=== PATIENT | female | born 1995 | race Caucasian/White ===

== ENCOUNTER 2017-02-19 10:01 | Inpatient (IN) ==
[2017-02-19] MEDS ORDERED: LR 500 ML IV ONE (10:38)
[2017-02-19] MEDS ORDERED: KEFZOL 1 GM/D5W 1 GM/50 ML IVPB IV PRN (10:38)
[2017-02-19] MEDS ORDERED: REGLAN PO ONE (10:38)
[2017-02-19] MEDS ORDERED: LR 1,000 ML IV SCH ×2 (10:38→11:00)
[2017-02-19] MEDS ORDERED: PEPCID PO ONE (10:38)
[2017-02-19] MEDS ORDERED: REGLAN IV ONE (11:00)
[2017-02-19] MEDS ORDERED: BICITRA PO ONE (11:00)
[2017-02-19] MEDS ORDERED: PEPCID IV ONE (11:00)
[2017-02-19 11:24] LABS: MANUAL DIFF NEEDED? NO; URINE SOURCE VOIDED
[2017-02-19 11:25] LABS: BASO% 0.2 % (0.0-0.8); EOS# 0.03 X1000 (0.0-0.7); EOS% 0.3 % (0.0-10.0); HEMATOCRIT 34.6 % (37.0-47.0); HEMOGLOBIN 11.4 g/dL (12.0-16.0); IMM GRAN# 0.03 X1000 (0.0-0.04); IMM GRAN% 0.3 % (0.0-0.5); LYMPH# 1.99 X1000 (1.2-3.4); LYMPH% 17.8 % (20.5-51.1); MCH 25.8 PG (27-31); MCHC 32.9 g/dL (33-37); MCV 78.3 FL (81-99); MONO% 5.4 % (1.7-9.3); MPV 9.8 FL (7.4-10.4); PLT 240 X1000 (130-400); RBC 4.42 XMIL (4.2-5.4)
[2017-02-19 11:37] LABS: BILIRUBIN URINE NEGATIVE (NEGATIVE); BLOOD URINE NEGATIVE (NEGATIVE); CLARITY CLEAR (CLEAR); COLOR YELLOW; GLUCOSE URINE NEGATIVE (NEGATIVE); LEUKOCYTES URINE 1+ (NEGATIVE); NITRITE URINE NEGATIVE (NEGATIVE); PROTEIN URINE NEGATIVE (NEGATIVE); SP GRAVITY URINE 1.015; UROBILINOGEN URINE NORMAL
[2017-02-19] MEDS ORDERED: PITOCIN 20 UNITS/LR 20 UNITS/1,000 ML IV.SOLN ONE (14:31)
[2017-02-19] MEDS ORDERED: CYTOTEC PO PRN ×2 (14:48→16:38)
[2017-02-19] MEDS ORDERED: PERCOCET-5 PO PRN ×2 (14:48→16:38)
[2017-02-19] MEDS ORDERED: BOOSTRIX VACCINE IM ONE (14:48)
[2017-02-19] MEDS ORDERED: PHENERGAN IM PRN ×2 (14:48→16:38)
[2017-02-19] MEDS ORDERED: AMBIEN PO PRN ×2 (14:48→16:38)
[2017-02-19] MEDS ORDERED: HYDROXYZINE IM PRN ×2 (14:48→16:38)
[2017-02-19] MEDS ORDERED: DULCOLAX PR PRN ×2 (14:48→16:38)
[2017-02-19] MEDS ORDERED: PITOCIN IM PRN ×2 (14:48→16:38)
[2017-02-19] MEDS ORDERED: PERCOCET-10 PO PRN (14:48)
[2017-02-19] MEDS ORDERED: HYDROXYZINE PO PRN ×2 (14:48→16:38)
[2017-02-19] MEDS ORDERED: DEMEROL PO PRN ×4 (14:48→16:38)
[2017-02-19] MEDS ORDERED: M-M-R II VACCINE SUBQ ONE (14:48)
[2017-02-19] MEDS ORDERED: MOTRIN PO PRN (14:48)
[2017-02-19] MEDS ORDERED: PITOCIN 20 UNITS/LR 20 UNITS/1,000 ML IV.SOLN IV ONE ×2 (14:48→16:38)
[2017-02-19] MEDS ORDERED: MYLICON PO PRN ×2 (14:48→16:38)
[2017-02-19] MEDS ORDERED: NORCO-10 PO PRN ×2 (14:48→16:38)
[2017-02-19] MEDS ORDERED: DEMEROL IM PRN ×2 (14:48→16:38)
[2017-02-19] MEDS ORDERED: NORCO-5 PO PRN ×2 (14:48→16:38)
[2017-02-19] MEDS ORDERED: PITOCIN 10 UNITS/LR 10 UNIT/1,000 ML IV.SOLN IV SCH ×2 (15:00→16:45)
[2017-02-19] MEDS ORDERED: TORADOL IV SCH (15:00)
[2017-02-19] MEDS ORDERED: BENADRYL IV PRN (15:35)
[2017-02-19] MEDS ORDERED: NARCAN INJ PRN (15:35)
[2017-02-19] MEDS ORDERED: ZOFRAN IV PRN ×2 (15:35)
[2017-02-19] MEDS ORDERED: ZOFRAN ODT PO PRN (15:35)
[2017-02-19] MEDS ORDERED: TORADOL IV PRN (15:36)
[2017-02-19] MEDS ORDERED: DILAUDID IV PRN (15:36)
[2017-02-19] MEDS ORDERED: MYLICON PO SCH (18:00)
--- NOTE | 2017-02-19 18:10 | OPERATIVE NOTE ---
PROCEDURE DATE: 02/19/2017 SURGEON: Dr. Braun. ANESTHESIA: Spinal. OPERATION PERFORMED: Primary low transverse . PREOPERATIVE DIAGNOSES: 1. Term . 2. Cephalopelvic disproportion. POSTOP DIAGNOSES: 1. Term . 2. Cephalopelvic disproportion. PRINCIPAL PROCEDURE: Primary low-transverse section. FINDINGS: At 1417 a 7-pound 7-ounce female infant was delivered in a vertex presentation. Apgars are 9 at 1 minute and 10 at 5 minute. SUMMARY: Ms. Adam was taken back to the operating room where spinal anesthetic was placed. She was then placed in supine position with a left lateral tilt. The abdomen was prepped and draped in usual fashion. A Andre catheter was placed in the urinary bladder. Once satisfactory conduction anesthesia was demonstrated, a Pfannenstiel incision was made. This incision was taken down to the fascia and the fascia was excised transversely. The underlying rectus muscles bluntly and sharply dissected free. The rectus muscle in midline. Peritoneum was entered. Lower uterine segment was identified. A bladder flap was created. A low transverse incision was made across the myometrium. This incision was extended laterally using digital pressure. Membranes ruptured and clear fluid. The infant's head was delivered through this incision without difficulty. The shoulders and body delivered without complications. Cord was clamped and cut. The was handed to the nurses further care and evaluation. Cord blood was obtained. Placenta was manually removed. Uterus was delivered onto the abdominal wall and explored. All membrane fragments were removed. The myometrium was then reapproximated using a running #1 chromic interlocking suture followed by several [id number] chromic sutures for complete hemostasis across the suture line. Uterus placed back in pelvic cavity. Uterine incision was reexamined and found to be hemostatic. Our first and then second sponge, instrument, and needle counts reported as correct. The peritoneum was closed using a running chromic suture. The final sponge, instrument and needle count report as correct. the fascia was closed using a running Vicryl suture and then the adipose tissue was reapproximated using a running 3-0 Vicryl suture. Skin edges reapproximated using subcuticular stitch. Anesthesia estimated blood loss at 500 mL and no complications. Patient went to the recovery room in stable condition. cc: Jean Paul Braun MD
[2017-02-19] MEDS: MYLICON PO SCH ×2 (18:52→20:32)
[2017-02-19] MEDS: PERICOLACE PO SCH (20:33)
[2017-02-19] MEDS ORDERED: PERICOLACE PO SCH (21:00)
[2017-02-20 06:58] LABS: HEMATOCRIT 29.2 % (37.0-47.0); HEMOGLOBIN 9.1 g/dL (12.0-16.0); MCHC 31.2 g/dL (33-37); MCV 80.2 FL (81-99); MPV 10.1 FL (7.4-10.4); RBC 3.64 XMIL (4.2-5.4)
[2017-02-20] MEDS: PERCOCET-10 PO PRN ×4 (08:17→22:21)
[2017-02-20] MEDS: MYLICON PO SCH ×4 (08:18→20:38)
[2017-02-20] MEDS: MOTRIN PO PRN ×2 (11:22→22:21)
[2017-02-20] MEDS ORDERED: LR 1,000 ML IV SCH ×2 (14:48→16:38)
[2017-02-20] MEDS: PERICOLACE PO SCH (20:38)
[2017-02-21] MEDS: PERCOCET-10 PO PRN ×2 (03:43→07:35)
--- NOTE | 2017-02-21 06:56 | DISCHARGE SUMMARY ---
ADMISSION DATE: 02/19/2017 DISCHARGE DATE: 02/21/2017 ADMITTING DIAGNOSIS: Term with cephalopelvic disproportion. PRINCIPAL DIAGNOSIS: Term with cephalopelvic disproportion. PRINCIPAL PROCEDURE: Primary low-transverse . SUMMARY: Karine Adam is a 21-year-old primigravida who is at term gestation. The cephalopelvic disproportion was diagnosed by her physical examination and the size of the infant. After discussing options with the patient, she was admitted to the hospital and underwent a primary low-transverse . She delivered a 7 pound 7 ounce female infant with Apgars of 9 at one minute and 10 at five minutes. There were no intraoperative complications. Following delivery, the patient did well. She remained afebrile. All vital signs were stable. She had an admission hemoglobin and hematocrit of 11.4 and 34.6 with discharge hemoglobin and hematocrit being 9.1 and 29.2. On the day of discharge, cardiac and pulmonary examinations were normal. Bowel and bladder function was normal. Her incision was clean and dry. Ms. Adam is being discharged today and will be seen back in the office in 1 week. She will continue her iron and vitamins. She was also given prescriptions for Percocet 10, #30, and Motrin for postoperative pain. Routine discharge instructions, activity limitations, and precautions were discussed in detail. cc: Jean Paul Braun MD
[2017-02-21 07:26] VITALS: BP 114/88
[2017-02-21] MEDS: MOTRIN PO PRN (07:55)
[2017-02-21] MEDS: MYLICON PO SCH ×2 (09:41→13:01)
== END 2017-02-21 14:27 | disposition home or self-care (01) ==
LOC: EDBD → MERGE 10:01 → P.LD 10:01 → P.WC 17:27
PROVIDERS: ADMIT Obstetrics & Gynecology; ATTEND Obstetrics & Gynecology